=== PATIENT | female | born 1960 | race Caucasian/White ===

== ENCOUNTER 2018-12-19 01:45 | Emergency (ER) | payer OTHER ==
[2018-12-19] MEDS ORDERED: ONDANSETRON 4 MG/2 ML VIAL ONE (02:33)
[2018-12-19] MEDS ORDERED: MORPHINE 4 MG/ML SYR ONE (02:33)
--- OUTSIDE RECORDS SUMMARY | 2018-12-19 04:36 | XMS REPORT | Clinical Summary ---
:1960 Author Organization [facility] Address [address] [place] [address] Care Team Providers Name Role Phone Kathy Robles MD Primary Care Provider Allergies No Known Allergies Medications Medication Sig Dispensed Refills Start Date End Date Status amLODIPine (NORVASC) 10 Take 10 mg by 0 Active mg tablet mouth daily. venlafaxine (EFFEXOR) Take 37.5 mg by 0 Active 37.5 MG tablet mouth daily. levothyroxine Take 50 mcg by 0 Active (SYNTHROID, LEVOXYL) 50 mouth every mcg tablet morning. lisinopril Take 10 mg by 0 Active (PRINIVIL,ZESTRIL) 10 mg mouth 2 (two) tablet times a day. metoprolol tartrate Take 100 mg by 0 Active (LOPRESSOR) 100 mg mouth 2 (two) tablet times a day. pantoprazole (PROTONIX) Take 40 mg by 0 Active 40 MG EC tablet mouth daily. Active Problems No known active problems Encounters Date Type Specialty Care Team Description 07/31/2018 Documentation Weight Management Jesika Ratliff Bariatric Follow Up Call after 12/18/2017 Family History Medical History Relation Name Comments Cancer Father Hypertension Father Heart failure Mother Hypertension Mother Heart failure Paternal Grandmother Diabetes Sister Hypertension Sister Relation Name Status Comments Father STOMACH Mother Paternal Grandmother Sister Social History Tobacco Use Types Packs/Day Years Used Date Never Smoker Smokeless Tobacco: Never Used Alcohol Use Drinks/Week oz/Week Comments Yes 2 Glasses of wine 12.0 10 Cans of beer Sex Assigned at Date Recorded Not on file Job Start Date Occupation Industry Not on file Not on file Not on file Travel History Travel Start Travel End No recent travel history available. Last Filed Vital Signs Not on file Plan of Treatment Health Maintenance Due Date Last Done Comments CERVICAL CANCER SCREENING 1981 COLONOSCOPY SCREENING 2010 SHINGLES VACCINES (#1) 2010 INFLUENZA VACCINE 11/22/2018 BREAST CANCER SCREENING 08/03/2019 08/02/2017, 06/23/2015, 06/23/2015, Additional history exists Results Not on fileafter 12/18/2017 Advance Directives For more information, please contact: [phone] Type Date Recorded Patient Lining Stitcher Explanation Advance Directives, Living Will and Medical Power of Coiled Coil Inspector
[2018-12-19 04:40] LABS: Absolute Lymphocytes (CBC) 2.4 K/uL (0.7-4.9); Basophils % 1.3 % (0-1.3); Hematocrit 39.2 % (36.0-45.0); Lymphocytes % 29.9 % (15.3-44.8); MPV 8.1 fL (7.6-11.3); RBC Red Blood Cell Count 4.57 M/uL (3.86-4.86)
[2018-12-19 04:42] LABS: ALT/SGPT 33 U/L (12-78); AST/SGOT 28 U/L (15-37); Albumin 3.5 g/dL (3.4-5.0); Alkaline Phosphatase 127 U/L (45-117); BUN Blood Urea Nitrogen 13 mg/dL (7-18); Bicarbonate 26 mmol/L (21-32); Bilirubin Direct < 0.1 mg/dL (0-0.2); Bilirubin Total 0.2 mg/dL (0.2-1.0); Glucose Level 101 mg/dL (74-106); Lipase 431 U/L (73-393); Potassium 3.9 mmol/L (3.5-5.1); Protein, Total 6.8 g/dL (6.4-8.2); Sodium Level 141 mmol/L (136-145)
[2018-12-19 04:46] LABS: Urine Blood NEGATIVE (NEG); Urine Glucose NEGATIVE (NEG); Urine Protein NEGATIVE (NEG); Urine Specific Gravity <1.005 (1.005-1.030)
--- NOTE | 2018-12-19 05:52 | ER ---
Nurse's Notes [facility] Name: Leila Avendaño Age: 57 yrs Sex: Female : 1960 Arrival Date: 12/19/2018 Time: 03:31 Bed 19 Private MD: Diagnosis: Pain localized to upper abdomen Presentation: 12/19 01:50 Presenting complaint: EMS states: Sudden onset of epigastric pain described as hot cc3 sensation NRS 10/10. Pain comes and goes. Patient had a few alcoholic drinks last night, complains of diarrhea six times. Transition of care: patient was not received from another setting of care. Onset of symptoms was December 19, 2018. Risk Assessment: Do you want to hurt yourself or someone else? Patient reports no desire to harm self or others. Initial Sepsis Screen: Does the patient meet any 2 criteria? No. Patient's initial sepsis screen is negative. Does the patient have a suspected source of infection? No. Patient's initial sepsis screen is negative. Care prior to arrival: None. 01:50 Acuity: TEJA 3 cc3 01:50 Method Of Arrival: EMS: [email or web address] cc3 Triage Assessment: 01:50 General: Appears in no apparent distress. uncomfortable, Behavior is calm, cooperative, cc3 appropriate for age. Pain: Complains of pain in epigastric Pain does not radiate. Pain currently is 10 out of 10 on a pain scale. Quality of pain is described as hot feeling Pain began 30 min ago. EENT: No signs and/or symptoms were reported regarding the EENT system. Neuro: Level of Consciousness is awake, alert, obeys commands, Oriented to person, place, time, situation, Appropriate for age. Cardiovascular: Capillary refill < 3 seconds Patient's skin is warm and dry. Respiratory: Airway is patent Respiratory effort is even, unlabored, Respiratory pattern is regular, symmetrical. GI: Abdomen is round non-distended, Bowel sounds present X 4 quads. : No signs and/or symptoms were reported regarding the genitourinary system. Derm: Skin is intact, is healthy with good turgor, Skin is pink, warm \T\ dry. normal. Musculoskeletal: Circulation, motion, and sensation intact. Range of motion: intact in all extremities. Historical: - Allergies: 01:50 No Known Allergies; cc3 - Home Meds: 01:50 Metoprolol Tartrate Oral [Active]; amlodipine oral [Active]; Lisinopril Oral [Active]; cc3 Effexor Oral [Active]; - PMHx: 01:50 Hypertension; Ulcers; cc3 - PSHx: 01:50 Appendectomy; Hysterectomy; Gastric Bypass; cc3 - Immunization history:: Adult Immunizations up to date. - Social history:: Smoking status: Patient/guardian denies using tobacco, never smoked, Patient uses alcohol. - Ebola Screening: : No symptoms or risks identified at this time. Screenin:50 Abuse screen: Denies threats or abuse. Denies injuries from another. Nutritional cc3 screening: No deficits noted. Tuberculosis screening: No symptoms or risk factors identified. Fall Risk Ambulatory Aid- None/Bed Rest/Nurse Assist (0 pts). Gait- Normal/Bed Rest/Wheelchair (0 pts) Mental Status- Oriented to own ability (0 pts). Assessment: 01:50 GI: Abd is soft and non tender X 4 quads. cc3 02:18 Reassessment: Patient appears in no apparent distress at this time. Patient and/or cc3 family updated on plan of care and expected duration. Pain level reassessed. Patient is alert, oriented x 3, equal unlabored respirations, skin warm/dry/pink. 03:20 Reassessment: Patient appears in no apparent distress at this time. Patient and/or cc3 family updated on plan of care and expected duration. Pain level reassessed. Patient is alert, oriented x 3, equal unlabored respirations, skin warm/dry/pink. 04:15 Reassessment: Patient appears in no apparent distress at this time. Patient and/or cc3 family updated on plan of care and expected duration. Pain level reassessed. Patient is alert, oriented x 3, equal unlabored respirations, skin warm/dry/pink. Patient came back from CT scan department, awaiting result. Patient denies pain at this time. Patient states feeling better. Patient states symptoms have improved. 05:40 Reassessment: Patient appears in no apparent distress at this time. Patient and/or cc3 family updated on plan of care and expected duration. Pain level reassessed. Patient is alert, oriented x 3, equal unlabored respirations, skin warm/dry/pink. Patient denies pain at this time. Patient states feeling better. Patient states symptoms have improved. 06:00 Reassessment: Patient appears in no apparent distress at this time. Patient and/or cc3 family updated on plan of care and expected duration. Pain level reassessed. Patient is alert, oriented x 3, equal unlabored respirations, skin warm/dry/pink. Patient discharged home, left ER vitally stable and ambulatory. Patient denies pain at this time. Patient states feeling better. Patient states symptoms have improved. Vital Signs: 01:50 BP 116 / 99; Pulse 88; Resp 16 S; Temp 97.5(O); Pulse Ox 100% on R/A; Weight 90.26 kg cc3 (R); Height 5 ft. 8 in. (172.72 cm) (R); Pain 10/10; 02:45 BP 114 / 88; Pulse 80; Resp 16 S; Pulse Ox 99% on R/A; cc3 03:15 BP 109 / 80; Pulse 73; Resp 17 S; Pulse Ox 97% on R/A; cc3 04:23 BP 118 / 83; Pulse 72; Resp 16 S; Pulse Ox 100% on R/A; cc3 05:40 BP 101 / 65; Pulse 67; Resp 17 S; Pulse Ox 96% on R/A; cc3 01:50 Body Mass Index 30.26 (90.26 kg, 172.72 cm) cc3 ED Course: 01:50 Patient has correct armband on for positive identification. Placed in gown. Bed in low cc3 position. Call light in reach. Side rails up X 1. library monitor on. Pulse ox on. NIBP on. 01:50 Arm band placed on right wrist. Patient notified of wait time. EKG completed in triage. cc3 Results shown to MD. 01:50 Maintain EMS IV. Dressing intact. Site clean \T\ dry. Gauge \T\ site: gauge 20 right hand. cc 3 02:40 Inserted saline lock: 20 gauge in left antecubital area, using aseptic technique. Blood cc3 collected. 03:31 Patient arrived in ED. fc 03:33 Jaime Couch MD is Attending Physician. gs 03:46 Macey Dubon is Primary Nurse. cc3 04:10 Triage completed. cc3 04:19 CT completed. Patient tolerated procedure well. Patient moved to CT via wheelchair. Patient moved back from [place]. 05:37 Abdomen In Process Unspecified. EDMS 06:00 No provider procedures requiring assistance completed. IV discontinued, intact, cc3 bleeding controlled, No redness/swelling at site. Pressure dressing applied. Administered Medications: 02:40 Drug: morphine 4 mg {Note: RASS 0.} Route: IVP; Site: left antecubital; cc3 03:30 Follow up: Response: No adverse reaction; Pain is decreased; RASS: Alert and Calm (0) cc3 02:45 Drug: Zofran 4 mg Route: IVP; Site: left antecubital; cc3 03:30 Follow up: Response: No adverse reaction; Nausea is decreased cc3 Outcome: 05:51 Discharge ordered by . 06:00 Discharged to home ambulatory. cc3 06:00 Condition: stable 06:00 Discharge instructions given to patient, Instructed on discharge instructions, follow up and referral plans. medication usage, Demonstrated understanding of instructions, follow-up care, medications, Prescriptions given X 2. 06:24 Patient left the ED. cc3 Signatures: Dispatcher [employer] EDTurner Vizcarra Felicia RN RN Jaime Dubose MD MD gs Cordel, Charlene cc3 Corrections: (The following items were deleted from the chart) 04:11 01:50 Method Of Arrival: EMS: [facility] cc3 cc3 04:15 01:50 Immunization history: Adult Immunizations unknown, cc3 cc3 04:15 01:50 Social history: Smoking status: Patient uses tobacco products, denies chronic cc3 smoking, but will smoke occasionally, cc3
--- NOTE | 2018-12-19 05:52 | EDPHYS ---
Physician Documentation [facility] Name: Leila Avendaño Age: 57 yrs Sex: Female : 1960 Arrival Date: 12/19/2018 Time: 03:31 Bed 19 Private MD: ED Physician Jaime Couch HPI: 12/19 05:40 This 57 yrs old Female presents to ER via EMS with complaints of Abdominal gs Pain. 05:40 The patient presents with abdominal pain. Onset: The symptoms/episode began/occurred gs acutely, just prior to arrival. The symptoms do not radiate. Associated signs and symptoms: Pertinent positives: nausea. The symptoms are described as crampy. Modifying factors: The symptoms are alleviated by nothing, the symptoms are aggravated by nothing. Severity of pain: At its worst the pain was moderate in the emergency department the pain is unchanged. The patient has experienced similar episodes in the past, a few times. Historical: - Allergies: 01:50 No Known Allergies; cc3 - Home Meds: 01:50 Metoprolol Tartrate Oral [Active]; amlodipine oral [Active]; Lisinopril Oral [Active]; cc3 Effexor Oral [Active]; - PMHx: 01:50 Hypertension; Ulcers; cc3 - PSHx: 01:50 Appendectomy; Hysterectomy; Gastric Bypass; cc3 - Immunization history:: Adult Immunizations up to date. - Social history:: Smoking status: Patient/guardian denies using tobacco, never smoked, Patient uses alcohol. - Ebola Screening: : No symptoms or risks identified at this time. ROS: 05:40 All other systems are negative. gs Exam: 05:40 Head/Face: Normocephalic, atraumatic. Eyes: Pupils equal round and reactive to light, gs extra-ocular motions intact. Lids and lashes normal. Conjunctiva and sclera are non-icteric and not injected. Cornea within normal limits. Periorbital areas with no swelling, redness, or edema. ENT: Nares patent. No nasal discharge, no septal abnormalities noted. Tympanic membranes are normal and external auditory canals are clear. Oropharynx with no redness, swelling, or masses, exudates, or evidence of obstruction, uvula midline. Mucous membranes moist. Neck: Trachea midline, no thyromegaly or masses palpated, and no cervical lymphadenopathy. Supple, full range of motion without nuchal rigidity, or vertebral point tenderness. No Meningismus. Chest/axilla: Normal chest wall appearance and motion. Nontender with no deformity. No lesions are appreciated. Cardiovascular: Regular rate and rhythm with a normal S1 and S2. No gallops, murmurs, or rubs. Normal PMI, no JVD. No pulse deficits. Respiratory: Lungs have equal breath sounds bilaterally, clear to auscultation and percussion. No rales, rhonchi or wheezes noted. No increased work of breathing, no retractions or nasal flaring. Back: No spinal tenderness. No costovertebral tenderness. Full range of motion. Skin: Warm, dry with normal turgor. Normal color with no rashes, no lesions, and no evidence of cellulitis. MS/ Extremity: Pulses equal, no cyanosis. Neurovascular intact. Full, normal range of motion. Neuro: Awake and alert, GCS 15, oriented to person, place, time, and situation. Cranial nerves II-XII grossly intact. Motor strength 5/5 in all extremities. Sensory grossly intact. Cerebellar exam normal. Normal gait. 05:40 Constitutional: The patient appears alert, awake, uncomfortable. 05:40 Abdomen/GI: Palpation: moderate abdominal tenderness, in the right upper quadrant and left upper quadrant. 05:51 ECG was reviewed by the Attending Physician. Vital Signs: 01:50 BP 116 / 99; Pulse 88; Resp 16 S; Temp 97.5(O); Pulse Ox 100% on R/A; Weight 90.26 kg cc3 (R); Height 5 ft. 8 in. (172.72 cm) (R); Pain 10/10; 02:45 BP 114 / 88; Pulse 80; Resp 16 S; Pulse Ox 99% on R/A; cc3 03:15 BP 109 / 80; Pulse 73; Resp 17 S; Pulse Ox 97% on R/A; cc3 04:23 BP 118 / 83; Pulse 72; Resp 16 S; Pulse Ox 100% on R/A; cc3 05:40 BP 101 / 65; Pulse 67; Resp 17 S; Pulse Ox 96% on R/A; cc3 01:50 Body Mass Index 30.26 (90.26 kg, 172.72 cm) cc3 MDM: 03:33 Patient medically screened. gs 05:40 Differential diagnosis: gastritis, gastroesophageal reflux disease, non-specific abd gs pain, pancreatitis. Data reviewed: vital signs, nurses notes. Counseling: I had a detailed discussion with the patient and/or guardian regarding: the historical points, exam findings, and any diagnostic results supporting the discharge/admit diagnosis, the need for outpatient follow up. Response to treatment: the patient's symptoms have markedly improved after treatment, the patient's condition has returned to base line. Response to treatment: and as a result, I will discharge patient. 12/19 03:47 Order name: Urine Dipstick--Ancillary (enter results) [facility] 12/19 03:51 Order name: Basic Metabolic Panel [facility] 12/19 03:51 Order name: CBC with Diff [facility] 12/19 03:51 Order name: Creatinine for Radiology [facility] 12/19 03:51 Order name: Hepatic Function [facility] 12/19 03:51 Order name: Lipase [facility] 12/19 03:59 Order name: CT Abd/Pelvis - Without Contrast [facility] 12/19 04:41 Order name: CBC with Automated Diff; Complete Time: 05:50 EDMS 12/19 04:42 Order name: Basic Metabolic Panel; Complete Time: 05:50 EDMS 12/19 04:42 Order name: Liver (Hepatic) Function; Complete Time: 05:50 EDMS 12/19 04:43 Order name: Lipase; Complete Time: 05:50 EDMS 12/19 04:47 Order name: Urine Dipstick-Ancillary; Complete Time: 05:50 EDMS 12/19 05:35 Order name: Abdomen [facility] 12/19 03:51 Order name: IV Saline Lock; Complete Time: 03:51 3 12/19 03:51 Order name: Labs collected and sent; Complete Time: 03:51 3 12/19 03:56 Order name: EKG; Complete Time: 04:49 3 12/19 03:56 Order name: EKG - Nurse/Tech; Complete Time: 03:56 cc3 EC:51 Rate is 78 beats/min. Rhythm is regular. ME interval is normal. QRS interval is normal. gs No ST changes noted. Clinical impression: Normal ECG. Interpreted by me. Administered Medications: 02:40 Drug: morphine 4 mg {Note: RASS 0.} Route: IVP; Site: left antecubital; cc3 03:30 Follow up: Response: No adverse reaction; Pain is decreased; RASS: Alert and Calm (0) cc3 02:45 Drug: Zofran 4 mg Route: IVP; Site: left antecubital; cc3 03:30 Follow up: Response: No adverse reaction; Nausea is decreased cc3 Disposition: 12/19/18 05:51 Discharged to Home. Impression: Pain localized to upper abdomen. - Condition is Stable. - Discharge Instructions: Abdominal Pain, Adult. - Prescriptions for Pepcid 20 mg Oral Tablet - take 1 tablet by ORAL route every 12 hours for 10 days; 20 tablet. Zofran 4 mg Oral Tablet - take 1 tablet by ORAL route every 12 hours As needed; 6 tablet. - Medication Reconciliation Form, Thank You Letter, Antibiotic Education, Prescription Opioid Use form. - Follow up: Private Physician; When: 2 - 3 days; Reason: Re-evaluation by your physician. Signatures: Dispatcher [employer] EDAR Jaime Couch MD MD gs Cordel, Charlene cc3 Corrections: (The following items were deleted from the chart) 04:15 01:50 Immunization history: Adult Immunizations unknown, cc3 cc3 04:15 01:50 Social history: Smoking status: Patient uses tobacco products, denies chronic cc3 smoking, but will smoke occasionally, cc3 06:24 05:51 12/19/2018 05:51 Discharged to Home. Impression: Pain localized to upper abdomen. cc3 Condition is Stable. Forms are Medication Reconciliation Form, Thank You Letter, Antibiotic Education, Prescription Opioid Use. Follow up: Private Physician; When: 2 - 3 days; Reason: Re-evaluation by your physician. ugo
--- NOTE | 2018-12-19 08:56 | EKG ---
Test Date: 2018-12-19 Test Time: 03:13:07 Transformer Shop Supervisor: JANY MEASUREMENT RESULTS: Intervals: Rate: 78 DE: 174 QRSD: 100 QT: 392 QTc: 446 [place]: P: 40 DE: 174 QRS: 34 T: 43 INTERPRETIVE STATEMENTS: Normal sinus rhythm Normal ECG No previous ECG available for comparison Electronically Signed On 12-19-18 08:56:09 CDT by Landry Maradiaga
--- NOTE | 2018-12-19 10:49 | RAD REPORT ---
EXAM DESCRIPTION: CT - Abdomen Pelvis W Contrast - 12/19/2018 5:56 am CLINICAL HISTORY: The patient is 53 years old and is Female; epigastric pain TECHNIQUE: Axial computed tomography images of the abdomen and pelvis with intravenous contrast. S agittal and coronal reformatted images were created and reviewed. This CT exam was performed using one or more of the following dose reduction techniques: automated exposure control, adjustment of t he mA and/or kV according to patient size, and/or use of iterative reconstruction technique. COMPARISON: No relevant prior studies available. FINDINGS: LUNG BASES: Unremarkable. No mass. No consolidation. MEDIASTINUM: A small hiatal hernia is present. ABDOMEN: LIVER: The liver is mildly fatty and prominent. GALLBLADDER AND BILE DUCTS: Physiologic distention of the gallbladder is noted. There is no duct al dilatation or calcified gallstones. PANCREAS: No ductal dilation. No mass. SPLEEN: Unremarkable. ADRENALS: Unremarkable. No mass. KIDNEYS AND URETERS: Exophytic 1.7 cm left renal cyst is present. No follow-up imaging is recomm ended. The kidneys enhance symmetrically. No obstructing renal or ureteral calculus is seen. STOMACH AND BOWEL: The stomach is decompressed. Postsurgical change consistent with a gastric by pass is noted. The small bowel is normal in caliber. Stool is present throughout colon. There is no m ucosal thickening or evidence of bowel obstruction. PELVIS: APPENDIX: No findings to suggest acute appendicitis. BLADDER: Unremarkable. No mass. REPRODUCTIVE: The patient is status post hysterectomy. ABDOMEN and PELVIS: INTRAPERITONEAL SPACE: Unremarkable. No free air. No significant fluid collection. BONES/JOINTS: No acute fracture. SOFT TISSUES: The soft tissues are normal. VASCULATURE: Unremarkable. No abdominal aortic aneurysm. LYMPH NODES: Unremarkable. No enlarged lymph nodes. IMPRESSION: No acute findings on this contrasted CT of the abdomen and pelvis to explain the patient 's symptoms. Electronically signed by: Naty Rodriguez MD 12/19/2018 4:49 AM CDT Due to temporary technical issues with the PACS/Fluency reporting system, reports are being signed by the in house radiologist as a courtesy to ensure prompt reporting. The interpreting radiologist is f ully responsible for the content of the report.
== END 2018-12-19 06:24 | disposition home or self-care (01) ==
LOC: ER 01:45
DX: R10.10 Upper abdominal pain, unspecified (principal); I10 Essential (primary) hypertension
CPT/HCPCS: 93005; 85025; 80048; 36415; 80076; 81003; 83690; 74177; Q9967; J2405; 96374; 96375; 99285

== ENCOUNTER 2021-09-28 11:22 | Emergency (ER) | payer OTHER, SELFPAY ==
--- OUTSIDE RECORDS SUMMARY | 2021-09-28 11:26 | XMS REPORT | Continuity of Care Document ---
:1960 Author Organization [facility] t Address [address] [place] [address] [address] [place] [address] Care Team Providers Name Role Phone OMER Attending Clinician Unavailable Problems This patient has no known problems. Allergies, Adverse Reactions, Alerts This patient has no known allergies or adverse reactions. Medications This patient has no known medications. Procedures This patient has no known procedures. Encounters Start End Encounter Admission Attending Care Care Encounter Source Date/Time Date/Time Type Type Clinicians Facility Department ID 2020-07-16 2020-07-16 Outpatient OMER Vince [facility] [id number] [place] 00:00:00 00:00:[address] [place] [address] Results This patient has no known results.
[2021-09-28 11:57] LABS: Absolute Lymphocytes (CBC) 1.7 K/uL (0.7-4.9); Hematocrit 42.8 % (36.0-45.0); Lymphocytes % 36.1 % (15.3-44.8); MPV 7.8 fL (7.6-11.3); RBC Red Blood Cell Count 4.75 M/uL (3.86-4.86)
[2021-09-28] MEDS ORDERED: MORPHINE 4 MG/ML SYR ONE (11:58)
[2021-09-28] MEDS ORDERED: NA CHLORIDE 0.9% 1,000 ML ONE (11:58)
[2021-09-28] MEDS ORDERED: ONDANSETRON 4 MG/2 ML VIAL ONE (11:58)
[2021-09-28 12:26] LABS: Albumin 3.4 g/dL (3.4-5.0); Bilirubin Total 1.1 mg/dL (0.2-1.0); Protein, Total 6.9 g/dL (6.4-8.2)
[2021-09-28 12:29] LABS: Potassium 2.9 mmol/L (3.5-5.1)
--- NOTE | 2021-09-28 12:57 | RAD REPORT ---
EXAM DESCRIPTION: US - Abdomen Exam Limited - 09/28/2021 12:31 pm CLINICAL HISTORY: ABD PAIN COMPARISON: Abdomen Pelvis W Contrast dated 12/19/2018 FINDINGS: The elongated gallbladder configuration matches the 2019 CT study. A few punctate areas of nonshadowing increased echogenicity seen within the lumen. These are probably areas of tumefactive s ludge. No shadowing gallstones confirmed. Areas of sludge are not likely symptomatic. There is no wal l thickening or pericholecystic fluid. No common duct stone or biliary tree dilatation identified. IMPRESSION: Tumefactive sludge is seen within the gallbladder lumen probably not clinically signific ant. No gallbladder wall thickening or pericholecystic fluid. No biliary tree abnormality.
--- NOTE | 2021-09-28 13:04 | RAD REPORT ---
EXAM DESCRIPTION: CT - Abdomen Pelvis W Contrast - 09/28/2021 12:51 pm CLINICAL HISTORY: Abdominal pain, acute, nonlocalized COMPARISON: Abdomen Pelvis W Contrast dated 12/19/2018; Abdomen Pelvis W Contrast dated 06/04/2017 TECHNIQUE: Biphasic, helical CT imaging of the abdomen and pelvis was performed following 100 ml non -ionic IV contrast. No oral contrast administered. All CT scans are performed using dose optimization technique as appropriate and may include automated exposure control or mA/KV adjustment according to patient size. FINDINGS: No suspicious findings in the lung bases. Liver shows a mild fatty infiltration pattern but no focal liver parenchymal lesions seen. No portal vein abnormality identified. No pancreatic or peripancreatic abnormality seen. Spleen is unremarkable . Gallbladder is distended but not dilated. The elongated shape is similar to 2019. No gallbladder wall thickening or edema seen. Separately reported ultrasound noted sludge but no gallstones. No biliary tree dilatation seen. Duct stones can be occult. Symmetric renal function is seen with no hydronephrosis or suspicious renal mass. No pyelonephritis o r acute parenchymal process. No bladder abnormalities. No adrenal abnormalities. Uterus is absent. Ov brenda are absent or atrophic. Surgical changes are noted at the GE junction. Small hiatal hernia is present. Findings are similar t o 2019. No acute gastric finding identified. Distal gastric bypass anastomotic site is unremarkable. There are no acute small bowel finding. Patient has a large fatty ileocecal valve. Appendix is not se en and may be surgically absent. No appendicitis findings. No acute colon process identifiable. Sigmo id colon is redundant. No free air, free fluid or inflammatory stranding. No hernia, mass or bulky lymphadenopathy. No suspicious bony findings. Degenerative changes are present. IMPRESSION: Gallbladder is distended but not dilated. No wall thickening or edema seen. Ultrasound s howed minimal sludge with no stones confirmed. No biliary tree dilatation. Duct stones can be occult on CT imaging. Mild diffuse fatty infiltration of the liver.
[2021-09-28 14:59] LABS: Urine Blood Negative (Negative); Urine Glucose Negative (Negative); Urine Protein Negative (Negative); Urine Specific Gravity <=1.005 (1.005-1.030); Urine pH 5.5 (5.0-7.0)
--- NOTE | 2021-09-28 16:06 | RAD REPORT ---
EXAM DESCRIPTION: MRI - Cholangiogram - 09/28/2021 3:51 pm CLINICAL HISTORY: abd pain Abdominal pain COMPARISON: Abdomen Exam Limited dated 09/28/2021; Abdomen Pelvis W Contrast dated 09/28/2021 FINDINGS: Three-dimensional MRCP was performed using maximum intensity projection reconstruction on the same work station. No intrahepatic biliary tree dilatation is seen. The common bile duct is normal caliber without evide nce of retained stone, stricture or mass. The pancreatic duct is not pathologically dilated. The gallbladder is distended but otherwise unremarkable. Limited T2 sequences through the abdomen demonstrates no bulky adenopathy, significant free fluid or abscess. 16 mm cyst anterior left kidney. IMPRESSION: Negative MR cholangiogram.
--- NOTE | 2021-09-28 16:20 | ER ---
Nurse's Notes [facility] Name: Leila Avendaño Age: 60 yrs Sex: Female : 1960 Arrival Date: 09/28/2021 Time: 11:28 Bed 8 Private MD: Diagnosis: Upper abdominal pain, unspecified;Gallbladder sludge Presentation: 09/28 11:32 Chief complaint: Patient states: she has been having right sided abdominal pain for ap3 approx 4 days now. patient states she believes it to be her gallbladder due to the pain increasing after eating or drinking anything. 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 Coronavirus screen: At this time, the client does not indicate any symptoms associated with coronavirus-19. Ebola Screen: No symptoms or risks identified at this time. Initial Sepsis Screen: Does the patient meet any 2 criteria? No. Patient's initial sepsis screen is negative. Does the patient have a suspected source of infection? No. Patient's initial sepsis screen is negative. Risk Assessment: Do you want to hurt yourself or someone else? Patient reports no desire to harm self or others. Onset of symptoms was September 24, 2021. 11:32 Method Of Arrival: Ambulatory ap3 11:32 Acuity: TEJA 3 ap3 Triage Assessment: 11:34 General: Appears in no apparent distress. Behavior is calm, cooperative. Pain: ap3 Complains of pain in right upper quadrant Pain radiates to back Aggravated by eating, drinking. Neuro: Level of Consciousness is awake, alert, obeys commands, Oriented to person, place, time, situation, Appropriate for age. Cardiovascular: Patient's skin is warm and dry. Respiratory: Airway is patent Respiratory effort is even, unlabored. GI: Reports upper abdominal pain, diarrhea. Historical: - Allergies: 11:33 No Known Allergies; ap3 - PMHx: 11:33 Anxiety; Hypertension; Hypothyroidism; Ulcers; ap3 - PSHx: 11:33 gastric bypass 2010; ap3 - Immunization history:: Client reports receiving the 2nd dose of the Covid vaccine. - Social history:: Smoking status: Patient denies any tobacco usage or history of. Patient uses alcohol, weekly. - Family history:: not pertinent. - Hospitalizations: : No recent hospitalization is reported. Screenin:35 Abuse screen: Denies threats or abuse. Abuse screen: Denies threats or abuse. ap3 Nutritional screening: No deficits noted. Tuberculosis screening: No symptoms or risk factors identified. Fall Risk None identified. Assessment: 11:58 General: Appears in no apparent distress. uncomfortable, Behavior is calm, cooperative, jd3 appropriate for age. Pain: Complains of pain in right upper quadrant Quality of pain is described as sharp, tender. Neuro: Carrillo Agitation-Sedation Scale (RASS): 0 - Alert and Calm Level of Consciousness is awake, alert, obeys commands, Oriented to person, place, time, situation. Cardiovascular: Denies chest pain, Capillary refill < 3 seconds Patient's skin is warm and dry. Respiratory: Airway is patent Respiratory effort is even, unlabored, Respiratory pattern is regular, symmetrical, Denies cough, shortness of breath. GI: Abdomen is round non-distended, Abd is soft X 4 quads Abdomen is tender to palpation in right upper quadrant Reports upper abdominal pain, diarrhea. : No signs and/or symptoms were reported regarding the genitourinary system. EENT: No signs and/or symptoms were reported regarding the EENT system. Derm: Skin is intact, Skin is dry, Skin is normal, Skin temperature is warm. Musculoskeletal: Circulation, motion, and sensation intact. Range of motion: intact in all extremities. 12:59 Reassessment: Patient appears in no apparent distress at this time. Patient and/or jd3 family updated on plan of care and expected duration. Pain level reassessed. Patient is alert, oriented x 3, equal unlabored respirations, skin warm/dry/pink. Patient states feeling better. 13:53 Reassessment: Patient appears in no apparent distress at this time. Patient and/or jd3 family updated on plan of care and expected duration. Pain level reassessed. Patient is alert, oriented x 3, equal unlabored respirations, skin warm/dry/pink. 14:57 Reassessment: Patient appears in no apparent distress at this time. Patient and/or jd3 family updated on plan of care and expected duration. Pain level reassessed. Patient is alert, oriented x 3, equal unlabored respirations, skin warm/dry/pink. 15:49 Reassessment: Patient appears in no apparent distress at this time. Patient and/or jd3 family updated on plan of care and expected duration. Pain level reassessed. Patient is alert, oriented x 3, equal unlabored respirations, skin warm/dry/pink. awaiting results. 16:50 Reassessment: Patient appears in no apparent distress at this time. Patient and/or jd3 family updated on plan of care and expected duration. Pain level reassessed. Patient is alert, oriented x 3, equal unlabored respirations, skin warm/dry/pink. Patient states feeling better. Vital Signs: 11:32 BP 129 / 99; Pulse 102; Resp 17; Temp 98.2; Pulse Ox 100% ; Weight 81.65 kg; Height 5 ap3 ft. 8 in. (172.72 cm); Pain 5/10; 12:59 BP 124 / 94; Pulse 69; Resp 18 S; Pulse Ox 100% on R/A; jd3 13:54 BP 112 / 98; Pulse 76; Resp 18 S; Pulse Ox 100% on R/A; jd3 15:50 Pulse 73; Resp 18 S; Pulse Ox 100% on R/A; jd3 11:32 Body Mass Index 27.37 (81.65 kg, 172.72 cm) ap3 ED Course: 11:28 Patient arrived in ED. am2 11:33 Triage completed. ap3 11:35 Arm band placed on right wrist. ap3 11:37 Kris Hare MD is Attending Physician. rn 11:37 Rick Healy RN is Primary Nurse. jd3 11:51 Inserted saline lock: 20 gauge in left antecubital area, using aseptic technique. Blood bp collected. 12:00 Patient has correct armband on for positive identification. Bed in low position. Call jd3 light in reach. Side rails up X 1. Adult w/ patient. 12:32 Abdomen Limited US In Process Unspecified. EDMS 12:53 CT Abd/Pelvis - IV Contrast Only In Process Unspecified. EDMS 15:53 Cholangiogram In Process Unspecified. EDMS 16:20 Ravinder Razo MD is Referral Physician. rn 16:50 No provider procedures requiring assistance completed. IV discontinued, intact, jd3 bleeding controlled, No redness/swelling at site. Pressure dressing applied. Administered Medications: 11:57 Drug: morphine 4 mg Route: IVP; Infused Over: 4 mins; Site: left antecubital; jd3 12:50 Follow up: Response: No adverse reaction; RASS: Alert and Calm (0) jd3 11:58 Drug: NS 0.9% 1000 ml Route: IV; Rate: 1 bolus; Site: left antecubital; jd3 11:58 Not Given (med on recall): Pepcid (famotidine) 20 mg IVP once; dilute with 10 mL 0.9% jd3 NaCl; give over 2 minutes 11:58 Drug: Zofran (Ondansetron) 4 mg Route: IVP; Site: left antecubital; jd3 13:46 Follow up: Response: No adverse reaction jd3 Medication: 12:00 VIS not applicable for this client. jd3 Outcome: 16:20 Discharge ordered by . rn 16:50 Discharged to home ambulatory, with family. jd3 16:50 Condition: stable 16:50 Discharge instructions given to patient, family, Instructed on discharge instructions, follow up and referral plans. Demonstrated understanding of instructions, follow-up care. 16:50 Patient left the ED. jd3 Signatures: Dispatcher [employer] EDMS Kris Hare MD MD rn Moreno, Amanda am2 Davies, Jonathon, RN RN jWillis Xiong RN RN bp Estrellita Herr RN RN ap3 Corrections: (The following items were deleted from the chart) 13:56 13:54 Pulse 76bpm; Resp 18bpm; Spontaneous; Pulse Ox 100% RA; jd3 jd3
--- NOTE | 2021-09-28 16:21 | EDPHYS ---
Physician Documentation [facility] Name: Leila Avendaño Age: 60 yrs Sex: Female : 1960 Arrival Date: 09/28/2021 Time: 11:28 Bed 8 Private MD: ED Physician Kris Hare HPI: 09/28 13:54 This 60 yrs old Female presents to ER via Ambulatory with complaints of Abdominal Pain rn - right side, Nausea/Vomiting. 13:54 The patient presents to the emergency department with nausea, vomiting, diarrhea, rn abdominal pain. Onset: The symptoms/episode began/occurred 4 day(s) ago. Possible causes: unknown. The symptoms are aggravated by nothing. The symptoms are alleviated by nothing. Severity of symptoms: At their worst the symptoms were moderate in the emergency department the symptoms have improved. The patient has experienced a previous episode. The patient has not recently seen a physician. Reports RUQ abd pain, for 4 days, worse with food, assoc with nausea and diarrhea, no fever. Told had gallbladder sludge in past. No sick contacts. No blood in stool. . Historical: - Allergies: 11:33 No Known Allergies; ap3 - PMHx: 11:33 Anxiety; Hypertension; Hypothyroidism; Ulcers; ap3 - PSHx: 11:33 gastric bypass 2010; ap3 - Immunization history:: Client reports receiving the 2nd dose of the Covid vaccine. - Social history:: Smoking status: Patient denies any tobacco usage or history of. Patient uses alcohol, weekly. - Family history:: not pertinent. - Hospitalizations: : No recent hospitalization is reported. ROS: 13:54 Constitutional: Negative for fever, chills, and weight loss, Eyes: Negative for injury, rn pain, redness, and discharge, Neck: Negative for injury, pain, and swelling, Cardiovascular: Negative for chest pain, palpitations, and edema, Respiratory: Negative for shortness of breath, cough, wheezing, and pleuritic chest pain, Abdomen/GI: + RUQ abd pain with nausea and diarrhea Back: Negative for injury and pain, : Negative for injury, bleeding, discharge, and swelling, MS/Extremity: Negative for injury and deformity, Skin: Negative for injury, rash, and discoloration, Neuro: Negative for headache, weakness, numbness, tingling, and seizure. Exam: 13:54 Constitutional: This is a well developed, well nourished patient who is awake, alert, rn appears in pain Head/Face: Normocephalic, atraumatic. Cardiovascular: Regular rate and rhythm. No pulse deficits. Respiratory: No increased work of breathing, no retractions or nasal flaring. Abdomen/GI: soft, + RUQ and epigastric tenderness, no rebound, neg Yates's Skin: Warm, dry with normal turgor. Normal color with no rashes, no lesions, and no evidence of cellulitis. MS/ Extremity: Pulses equal, no cyanosis. Neurovascular intact. Full, normal range of motion. Equal circumference. Neuro: Awake and alert, GCS 15 Vital Signs: 11:32 BP 129 / 99; Pulse 102; Resp 17; Temp 98.2; Pulse Ox 100% ; Weight 81.65 kg; Height 5 ap3 ft. 8 in. (172.72 cm); Pain 5/10; 12:59 BP 124 / 94; Pulse 69; Resp 18 S; Pulse Ox 100% on R/A; jd3 13:54 BP 112 / 98; Pulse 76; Resp 18 S; Pulse Ox 100% on R/A; jd3 15:50 Pulse 73; Resp 18 S; Pulse Ox 100% on R/A; jd3 11:32 Body Mass Index 27.37 (81.65 kg, 172.72 cm) ap3 MDM: 11:37 Patient medically screened. rn 16:18 Differential diagnosis: Nonspecific abd pain, cholecystitis, pancreatitis, viral rn gastroenteritis, gastroenteritis, choledocholithiasis. Data reviewed: vital signs, nurses notes, lab test result(s), radiologic studies, CT scan, MRI, and as a result, I will discharge patient. Counseling: I had a detailed discussion with the patient and/or guardian regarding: the historical points, exam findings, and any diagnostic results supporting the discharge/admit diagnosis, lab results, radiology results, the need for outpatient follow up, to return to the emergency department if symptoms worsen or persist or if there are any questions or concerns that arise at home. Response to treatment: the patient's symptoms have resolved after treatment, the patient's condition has returned to base line, the patient is now symptom free, and as a result, I will discharge patient. Special discussion: I discussed with the patient/guardian in detail that at this point there is no indication for admission to the hospital. It is understood, however, that if the symptoms persist or worsen the patient needs to return immediately for re-evaluation. Based on the history and exam findings, there is no indication for further emergent testing or inpatient evaluation. I discussed with the patient/guardian the need to see the turbine engineer for further evaluation of the symptoms. I discussed with the patient/guardian the need to see the general surgeon for further evaluation of the symptoms. I discussed with the patient/guardian the need to see the primary care provider for further evaluation of the symptoms. ED course: Pt with neg MRCP, pain free, stable vitals, no signs of cholecystitis. Pt reports abnormal LFTs have been tracked and has known fatty liver disease and elevated LFTs.. 09/28 11:43 Order name: CBC with Diff; Complete Time: 13:06 rn 09/28 11:43 Order name: CMP; Complete Time: 13: rn 09/28 11:43 Order name: Lipase; Complete Time: 13: rn 09/28 11:43 Order name: Abdomen Limited US; Complete Time: 13: rn 09/28 11:43 Order name: CT Abd/Pelvis - IV Contrast Only; Complete Time: 13: rn 09/28 14:59 Order name: Urine Dipstick-Ancillary; Complete Time: 16:08 EDMS 09/28 11:43 Order name: IV Saline Lock; Complete Time: 11:50 rn 09/28 11:43 Order name: Labs collected and sent; Complete Time: 11:50 rn 09/28 13:44 Order name: Cholangiogram; Complete Time: 16:08 EDMS Administered Medications: 11:57 Drug: morphine 4 mg Route: IVP; Infused Over: 4 mins; Site: left antecubital; jd3 12:50 Follow up: Response: No adverse reaction; RASS: Alert and Calm (0) jd3 11:58 Drug: NS 0.9% 1000 ml Route: IV; Rate: 1 bolus; Site: left antecubital; jd3 11:58 Not Given (med on recall): Pepcid (famotidine) 20 mg IVP once; dilute with 10 mL 0.9% jd3 NaCl; give over 2 minutes 11:58 Drug: Zofran (Ondansetron) 4 mg Route: IVP; Site: left antecubital; jd3 13:46 Follow up: Response: No adverse reaction jd3 Disposition Summary: 09/28/21 16:20 Discharge Ordered Location: Home rn Problem: new rn Symptoms: have improved rn Condition: Stable rn Diagnosis - Upper abdominal pain, unspecified rn - Gallbladder sludge rn Followup: rn - With: Ravinder Razo MD - When: As needed - Reason: Recheck today's complaints, Re-evaluation by your physician Discharge Instructions: - Discharge Summary Sheet rn - Abdominal Pain, Adult rn - Gallbladder Eating Plan rn Forms: - Medication Reconciliation Form rn - Thank You Letter rn - Antibiotic fern picker - Prescription Opioid Use rn Signatures: Dispatcher [employer] EDKris Newton MD MD rn Davies, Jonathon RN RN jd3 Estrellita Herr RN RN ap3
[2021-09-28 17:28] VITALS: TEMP 98.2; O2SAT 100
[2021-09-28 17:31] VITALS: BP 112/98
== END 2021-09-28 16:50 | disposition home or self-care (01) ==
LOC: ER 11:22
DX: K82.8 Other specified diseases of gallbladder (principal); R11.2 Nausea with vomiting, unspecified; I10 Essential (primary) hypertension; Z98.84 Bariatric surgery status
CPT/HCPCS: 85025; 36415; 81003; 83690; 80053; 74177; 74181; 76705; Q9967; J7030; J2405

== ENCOUNTER 2021-10-18 07:07 | Day surgery (SDC) | payer OTHER ==
[2021-10-14 10:13] LABS: Absolute Lymphocytes (CBC) 1.5 K/uL (0.7-4.9); Hematocrit 42.5 % (36.0-45.0); Lymphocytes % 28.5 % (15.3-44.8); MPV 7.4 fL (7.6-11.3); RBC Red Blood Cell Count 4.79 M/uL (3.86-4.86)
[2021-10-14 10:24] LABS: SARS-CoV-2 Antigen Rapid Res Negative (Negative)
[2021-10-14 10:35] LABS: ALT/SGPT 96 U/L (12-78); AST/SGOT 190 U/L (15-37); Albumin 3.4 g/dL (3.4-5.0); Alkaline Phosphatase 175 U/L (45-117); Amylase 27 U/L (25-115); BUN Blood Urea Nitrogen 5 mg/dL (7-18); Bicarbonate 23 mmol/L (21-32); Bilirubin Direct 0.3 mg/dL (0-0.2); Bilirubin Total 0.9 mg/dL (0.2-1.0); Glomerular Filtration Rate 93 ml/min (=/>90); Glucose Level 125 mg/dL (74-106); Lipase 136 U/L (73-393); Protein, Total 6.9 g/dL (6.4-8.2); Sodium Level 135 mmol/L (136-145)
--- NOTE | 2021-10-14 13:59 | RAD REPORT ---
EXAM DESCRIPTION: RAD - Chest Pa And Lat (2 Views) - 10/14/2021 1:32 pm CLINICAL HISTORY: Pre op pending cholecystectomy COMPARISON: No comparisons FINDINGS: Lines: None. Lungs: No evidence of edema or pneumonia. Pleural: No significant pleural effusions or pneumothorax. Cardiac: The heart size is within normal limits. Bones: No acute fractures. Other: IMPRESSION: No acute cardiopulmonary disease.
--- NOTE | 2021-10-16 17:34 | EKG ---
Test Date: 2021-10-14 Test Time: 09:46:43 Manufacturing Controller: TAMMY MEASUREMENT RESULTS: Intervals: Rate: 76 AK: 140 QRSD: 94 QT: 394 QTc: 443 [place]: P: 4 AK: 140 QRS: 12 T: 21 INTERPRETIVE STATEMENTS: Normal sinus rhythm Normal ECG Compared to ECG 12/19/2018 03:13:07 No significant changes Electronically Signed On 10-16-21 17:30:23 CDT by Manny Sullivan
[2021-10-18] MEDS ORDERED: Ringers Lactate 1,000 ML IV ONE (07:16)
[2021-10-18] MEDS ORDERED: CELECOXIB 100 MG CAPSULE ONE (08:22)
[2021-10-18] MEDS ORDERED: ACETAMINOPHEN 500 MG TAB ONE (08:22)
[2021-10-18] MEDS: CEFOXITIN SODIUM 1 GM/VIAL ONE ×2 (08:25→08:27)
[2021-10-18] MEDS ORDERED: MIDAZOLAM HCL 2 MG/2 ML INJ ONE (08:30)
[2021-10-18] MEDS ORDERED: FENTANYL CITR 100 MCG/2 ML ONE (08:30)
[2021-10-18] MEDS ORDERED: LIDOCAINE 1% MPF 5 ML VIAL ONE (08:30)
[2021-10-18] MEDS ORDERED: ROCURONIUM 50 MG/5 ML VIAL IV ONE (08:30)
[2021-10-18] MEDS ORDERED: propofoL 200 MG/20 ML VIAL IV ONE (08:30)
[2021-10-18] MEDS ORDERED: NS 0.9% VIAL 10 ML ONE (08:35)
[2021-10-18] MEDS ORDERED: GLYCOPYRROLATE 0.2 MG/ML SYR ONE ×3 (08:50→09:01)
[2021-10-18] MEDS ORDERED: dexAMETHasone 10 MG/ML VIAL ONE (08:55)
[2021-10-18] MEDS ORDERED: KETOROLAC 30 MG/ML INJ ONE (08:55)
[2021-10-18] MEDS ORDERED: ONDANSETRON 4 MG/2 ML VIAL ONE (09:01)
[2021-10-18] MEDS ORDERED: NEOSTIGMINE 1 MG/ML -10 ML VIAL ONE (09:03)
[2021-10-18] MEDS ORDERED: SUGAMMADEX SODIUM 200 MG/2 ML VIAL IV ONE (09:05)
[2021-10-18] MEDS ORDERED: Mastisol Adhesive Liq ONE (09:10)
--- NOTE | 2021-10-18 09:11 | P.BOP ---
Preoperative diagnosis: RUQ abd pain, symptomatic cholelithiasis Postoperative diagnosis: same Primary procedure: Laparoscopic cholecystectomy Medical Transcriber: Maria Esther Rangel (Chicho) Estimated blood loss: <10cc Specimen: gb Findings: as above Anesthesia: General Transferred to: Recovery Room Condition: Good
[2021-10-18] MEDS ORDERED: HYDROMORPHONE HCL 1 MG/ML INJ ONE (09:38)
--- NOTE | 2021-10-18 10:04 | DS ---
Diagnoses: Symptomatic cholelithiasis, right upper quadrant abdominal pain. Procedure: Laparoscopic cholecystectomy. Disposition: Home. Activity: As tolerated. No heavy lifting. Plan: Follow up in my office in 1 week. Call for appointment at [phone]. Keep area dry for 48 canelo rs, then may shower. Keep Steri-Strip intact. Medications: See orders. LISSY/IGNACIO Voice ID: [id number] Report ID: [id number]
--- NOTE | 2021-10-18 10:04 | OP ---
Date of Procedure: 10/18/2021 Surgeon: Artemio Ulloa MD Preoperative Diagnoses: Right upper quadrant abdominal pain, symptomatic cholelithiasis, history of Zo-en-Y gastric bypass. Postoperative Diagnoses: Right upper quadrant abdominal pain, symptomatic cholelithiasis, history of Zo-en-Y gastric bypass. Procedure: Laparoscopic cholecystectomy. Anesthesia: General plus local. Complications: None. Estimated Blood Loss: Less than 10 mL. Indications: This is the case of a 60-year-old patient, who comes to us with intractable right upper quadrant abdominal pain. She has extensive workup done, found to have sludge in the gallbladder, se nt to our office for possible laparoscopic possible open cholecystectomy and that was explained to he r with benefits, alternatives, and alternatives and risks including, but not limited to infection, bl eeding, damage to adjacent structures, anesthesia complication, bile leak, pancreatitis, CA, and even . She also understands this may not relieve any symptoms. She might need more than one surgic al intervention. She understood, signed a consent. Procedure In Detail: The patient was brought to the operating room, placed in supine position. Anes thesia was without complication. Abdominal area was prepped and draped in the usual sterile fashion. Marcaine 0.5% was injected for local anesthetic followed by sharp incision of the skin in the supra umbilical area. The incision was carried down to fascia, which was opened under direct vision. Tova toneum was encountered, opened under direct vision Vicryl #1 placed inside the fascia. Palmira trocar was carefully introduced. Pneumoperitoneum was obtained. I placed 3 more trocars, 5 mm each one of them in the epigastric area, 2 right upper quadrant using same technique, which consisted of local a nesthetic, sharp incision of the skin and introduction of the trocars under direct vision. This allo wed me to put a grasper in the fundus of the gallbladder, another grasper in the infundibulum retract ing the gallbladder in the inferolateral fashion, exposing the triangle of Calot and obtaining critic al view. Cystic duct and cystic artery were clearly isolated, freed circumferentially and a connecti on between those and the gallbladder were clearly identified. I proceeded to ligate those by using a t least 3 clips proximal, 1 clip distal, ligation in middle. Same was done with the cystic artery. No bile leak. No bleeding. The gallbladder was removed from the liver using Bovie cauterizer and re moved from abdominal cavity using EndoCatch through umbilical incision. The area was inspected once again. No bile leak. No bleeding. At that moment, I proceeded to remove the trocars under direct v ision. Deflated the pneumoperitoneum. Closed the fascia with #1 Vicryl. Irrigated the subcutaneous tissue, closed that with 3-0 chromic and the skin in a subcuticular fashion with 3-0 chromic and Michel ri-Strips on top. Sponge count and instrument counts correct. The patient tolerated the procedure w ell. The patient was sent to recovery in stable condition. LISSY/IGNACIO Voice ID: [id number] Report ID: [id number]
[2021-10-18] MEDS ORDERED: CODEINE 30MG/APAP 300MG TAB ONE (10:39)
[2021-10-18 11:33] VITALS: BP 111/82; TEMP 97.3; O2SAT 97
== END 2021-10-18 10:50 | disposition home or self-care (01) ==
LOC: OR 07:07
PROVIDERS: ATTEND Surgery
PROC: 0FT44ZZ Resection of Gallbladder, Percutaneous Endoscopic Approach (ICD-10-PCS; principal; 2021-10-18 08:30)
DX: K80.10 Calculus of gallbladder with chronic cholecystitis without obstruction (principal); R10.11 Right upper quadrant pain; Z98.84 Bariatric surgery status
CPT/HCPCS: 93005; 85025; 80048; 36415; 82150; 80076; 88304; 83690; 71046; 87811; 47562; J2704; J2710; J2250; J3010; J1100; J1170; J7120; J0694; J2405

== ENCOUNTER 2023-08-01 16:26 | Observation (INO) | payer OTHER ==
[2023-08-01] MEDS ORDERED: MECLIZINE HCL 12.5 MG TAB ONE (17:18)
[2023-08-01] MEDS ORDERED: NA CHLORIDE 0.9% 1,000 ML ONE (17:19)
--- NOTE | 2023-08-01 17:29 | RAD REPORT ---
EXAM DESCRIPTION: CT - Head Brain Wo Cont - 08/01/2023 5:24 pm CLINICAL HISTORY: DIZZINESS Headache, drowsiness, dizziness COMPARISON: <Comparisons> TECHNIQUE: All CT scans are performed using dose optimization technique as appropriate and may inclu de automated exposure control or mA/KV adjustment according to patient size. FINDINGS: No intracranial hemorrhage, hydrocephalus or extra-axial fluid collection.Mild brain atrop hy.No areas of brain edema or evidence of midline shift. The paranasal sinuses and mastoids are clear. The calvarium is intact. IMPRESSION: No acute intracranial abnormality.
[2023-08-01 17:36] LABS: Absolute Basophils 0.1 K/uL (0-0.5); Absolute Eosinophils 0.1 K/uL (0-0.5); Absolute Lymphocytes (CBC) 1.3 K/uL (0.7-4.9); Absolute Monocytes 0.4 K/uL (0.1-1.3); Absolute Neutrophil 3.3 K/uL (1.8-8.0); Basophils % 1.3 % (0-1.3); Eosinophils % 2.1 % (0-4.4); Hematocrit 35.7 % (36.0-45.0); Hemoglobin 11.6 g/dL (12.0-15.0); MCH 29.2 pg (27.0-35.0); MCHC 32.6 g/dL (32.0-36.0); MCV 89.6 fL (80-100); Monocytes % 8.2 % (3.3-12.3); Neutrophils % 63.4 % (41.7-73.7); Nucleated Red Blood Cells % 0.1 % (0-0); Platelets 215 thou/uL (152-406); RBC Red Blood Cell Count 3.99 M/uL (3.86-4.86); Red Cell Distribution Width 15.2 % (12.1-15.2)
[2023-08-01 17:46] LABS: Anion Gap 9.2 mEq/L (5.0-15.0); BUN Blood Urea Nitrogen 11 mg/dL (7-18); Bicarbonate 24 mEq/L (21-32); Glomerular Filtration Rate 105 ml/min (=/>90); Glucose Level 97 mg/dL (74-106); Potassium 3.2 mEq/L (3.5-5.1); Sodium Level 138 mEq/L (136-145)
[2023-08-01 17:48] LABS: Troponin High Sensitivity < 3.0 pg/mL (<58.9)
--- NOTE | 2023-08-01 17:55 | RAD REPORT ---
EXAM DESCRIPTION: RAD - Chest Single View - 08/01/2023 5:43 pm CLINICAL HISTORY: PALPITATIONS Chest pain. COMPARISON: <Comparisons> FINDINGS: Portable technique limits examination quality. The lungs are grossly clear. The heart is upper limit of normal in size. No displaced fractures. IMPRESSION: No acute intrathoracic process suspected.
[2023-08-01] MEDS ORDERED: POTASSIUM CL SA 10 MEQ TAB PO ONE (18:38)
--- NOTE | 2023-08-01 19:13 | ER ---
Nurse's Notes [facility] Name: Leila Avendaño Age: 62 yrs Sex: Female : 1960 Arrival Date: 08/01/2023 Time: 16:26 Bed 7 Private MD: Diagnosis: Dizziness and giddiness;Palpitations Presentation: 07/31 16:45 Chief complaint: Patient states: Sudden onset dizziness, KENT, nausea at 1530 while at 1 work. EMS states: Initial BP 170/100, now BP 130/85. 20 L hand Zofran 4 MG IV given en route. Coronavirus screen: Client denies travel out of the [place] in the last 14 days. At this time, the client does not indicate any symptoms associated with coronavirus-19. Ebola Screen: Patient denies travel to an Ebola-affected area in the 21 days before illness onset. Initial Sepsis Screen: Does the patient meet any 2 criteria? No. Patient's initial sepsis screen is negative. Does the patient have a suspected source of infection? No. Patient's initial sepsis screen is negative. Risk Assessment: Do you want to hurt yourself or someone else? Patient reports no desire to harm self or others. Onset of symptoms was August 01, 2023. 16:45 Method Of Arrival: EMS ll1 16:45 Acuity: TEJA 3 ll1 Triage Assessment: 16:50 General: Appears uncomfortable, Behavior is calm, cooperative, appropriate for age. ll1 Pain: Complains of pain in HEAD Pain currently is 5 out of 10 on a pain scale. Quality of pain is described as aching. Neuro: Reports dizziness, headache. GI: Reports nausea. Historical: - Allergies: 16:45 No Known Allergies; ll1 - PMHx: 16:45 Anxiety; Hypertension; Hypothyroidism; Ulcers; ll1 - PSHx: 16:45 gastric bypass 2010; ll1 - Immunization history:: Adult Immunizations up to date. - Infectious Disease History:: Denies. - Social history:: Smoking status: Patient denies any tobacco usage or history of. - History obtained from: sister, EMS. Screenin:[address] [facility] ED Fall Risk Assessment (Adult) History of falling in the last 3 months, kc6 including since admission No falls in past 3 months (0 pts) Confusion or Disorientation No (0 pts) Intoxicated or Sedated No (0 pts) Impaired Gait No (0 pts) Mobility Assist Device Used No (0 pt) Altered Elimination No (0 pt) Score/Fall Risk Level 0 - 2 = Low Risk. Abuse screen: Denies threats or abuse. Denies injuries from another. Nutritional screening: No deficits noted. Tuberculosis screening: No symptoms or risk factors identified. Assessment: 17:30 General: Appears in no apparent distress. comfortable, Behavior is calm, cooperative, kc6 appropriate for age. 17:37 Neuro: Level of Consciousness is awake, alert, obeys commands, Oriented to person, kc6 place, time, situation, Appropriate for age Reports dizziness, headache. Cardiovascular: Reports palpitations, Heart tones S1 S2 present Capillary refill < 3 seconds Rhythm is sinus rhythm. Respiratory: Airway is patent Trachea midline Respiratory effort is even, unlabored, Respiratory pattern is regular, symmetrical. GI: No signs and/or symptoms were reported involving the gastrointestinal system. : No signs and/or symptoms were reported regarding the genitourinary system. EENT: No signs and/or symptoms were reported regarding the EENT system. Derm: No signs and/or symptoms reported regarding the dermatologic system. Skin is intact, is healthy with good turgor, Skin is pink, warm \\T\\ dry. Musculoskeletal: No signs and/or symptoms reported regarding the musculoskeletal system. Circulation, motion, and sensation intact. Capillary refill < 3 seconds, Range of motion: intact in all extremities. 18:28 Reassessment: Patient appears in no apparent distress at this time. No changes from [facility] previously documented assessment. Patient and/or family updated on plan of care and expected duration. Pain level reassessed. Patient is alert, oriented x 3, equal unlabored respirations, skin warm/dry/pink. 18:50 Reassessment: pt reports feeling dizzy and like she's "tripping" when ambulated to the [facility] bathroom. Dr. Glover notifed. 19:00 General: Appears in no apparent distress. comfortable, Behavior is calm, cooperative. jw7 19:00 Pain: Denies pain. Neuro: Level of Consciousness is awake, alert, obeys commands, jw7 Oriented to person, place, time, situation, Reports dizziness. Cardiovascular: Heart tones S1 S2 present Capillary refill < 3 seconds Clubbing of nail beds is absent JVD is absent Patient's skin is warm and dry. Rhythm is sinus rhythm. Respiratory: Airway is patent Trachea midline Respiratory effort is even, unlabored, Respiratory pattern is regular, symmetrical, Breath sounds are clear bilaterally. GI: Abdomen is flat, non-distended, Bowel sounds present X 4 quads. Abd is soft and non tender X 4 quads. : No deficits noted. No signs and/or symptoms were reported regarding the genitourinary system. EENT: No deficits noted. No signs and/or symptoms were reported regarding the EENT system. Derm: Skin is intact, is healthy with good turgor, Skin is dry, Skin is normal, Skin temperature is warm. Musculoskeletal: Circulation, motion, and sensation intact. Range of motion: intact in all extremities. 20:00 Reassessment: Patient appears in no apparent distress at this time. No changes from [facility] previously documented assessment. Patient and/or family updated on plan of care and expected duration. Pain level reassessed. Patient is alert, oriented x 3, equal unlabored respirations, skin warm/dry/pink. 21:00 Reassessment: Patient appears in no apparent distress at this time. No changes from [facility] previously documented assessment. Patient and/or family updated on plan of care and expected duration. Pain level reassessed. Patient is alert, oriented x 3, equal unlabored respirations, skin warm/dry/pink. 22:00 Reassessment: Patient appears in no apparent distress at this time. Patient and/or jw7 family updated on plan of care and expected duration. Pain level reassessed. Patient is alert, oriented x 3, equal unlabored respirations, skin warm/dry/pink. Patient states feeling better. Patient states symptoms have improved. Vital Signs: 16:45 BP 143 / 105; Pulse 71; Resp 16; Temp 98; Pulse Ox 100% on R/A; Weight 77.11 kg; Height ll1 5 ft. 8 in. ; Pain 5/10; 17:37 BP 144 / 93; Pulse 64; Resp 16 S; Pulse Ox 100% on R/A; kc6 18:28 BP 143 / 105; Pulse 65; Resp 15 S; Pulse Ox 100% on R/A; kc6 18:51 BP 148 / 97; kc6 19:00 BP 149 / 106; Pulse 69; Resp 16 S; Pulse Ox 97% on R/A; jw7 20:00 BP 142 / 104; Pulse 75; Resp 17 S; Pulse Ox 99% on R/A; jw7 21:00 BP 141 / 102; Pulse 70; Resp 16 S; Pulse Ox 98% on R/A; jw7 22:00 BP 134 / 97; Pulse 70; Resp 16 S; Pulse Ox 97% on R/A; jw7 16:45 Body Mass Index 25.85 (77.11 kg, 172.72 cm) ll1 16:45 Pain Scale: Adult ll1 NIH Stroke Scale Scores: 19:03 NIHSS Score: 0 ci ED Course: 16:35 Patient arrived in ED. ec2 16:43 [facility]ero[facility] kb 16:43 All Alexis MD is Attending Physician. kb 16:45 Ricky Nava is Attending Physician. ec2 16:45 Arm band placed on Patient placed in an exam room, on a stretcher. ll1 16:48 Triage completed. ll1 16:50 Maintain EMS IV. Dressing intact. Good blood return noted. Site clean \\T\\ dry. Gauge \\T\\ ll 1 site: 20 G L hand. 16:59 Mattie Roger, SIENNA is Primary Nurse. kc6 17:25 CT Head Brain wo Cont In Process Unspecified. EDMS 17:29 Patient has correct armband on for positive identification. Bed in low position. Call kc6 light in reach. Side rails up X2. Adult w/ patient. Client placed on continuous cardiac and pulse oximetry monitoring. NIBP monitoring applied. barback on. Door closed. Noise minimized. Lights dimmed. Warm blanket given. PO fluids given. 17:45 XRAY Chest (1 view) In Process Unspecified. EDMS 19:00 Report received from Sienna Rubio. jw7 19:00 Provided Education on: Use of Call Light. jw7 19:11 Vikas Chin MD is Hospitalizing Provider. ci 19:46 Primary Nurse role handed off by Mattie Roger, SIENNA as6 20:15 Door closed. Noise minimized. Lights dimmed. Warm blanket given. jw7 22:00 No provider procedures requiring assistance completed. jw7 22:00 Patient admitted, IV remains in place. jw7 Administered Medications: 17:29 Drug: NS 0.9% IV 1000 ml IV at 1000 ml once Route: IV; Rate: 1000 ml; Site: left hand; kc6 18:46 Follow up: Response: No adverse reaction; IV Status: Completed infusion; IV Intake: kc6 1000ml 17:29 Drug: Meclizine PO 50 mg PO once Route: PO; kc6 18:18 Follow up: Response: No adverse reaction kc6 18:46 Drug: Potassium Chloride PO 40 mEq PO once Route: PO; kc6 18:59 Follow up: Response: No adverse reaction kc6 Medication: 22:00 VIS not applicable for this client. jw7 Intake: 18:46 IV: 1000ml; Total: 1000ml. kc6 Outcome: 19:12 Decision to Hospitalize by Provider. ci 22:00 Admitted to Tele accompanied by tech, family with patient, via stretcher, room 401, jw7 22:00 Condition: stable 22:00 Instructed on the need for admit, Demonstrated understanding of instructions, 22:28 Patient left the ED. jw7 NIH Stroke Scale - NIH Stroke Score Date: 08/01/2023 Time: 19:03 Total Score = 0 10. Dysarthria (speech clarity - read or repeat words) - 0(Normal) 11. Extinction and Inattention (visual/tactile/auditory/spatial/personal) - 0(No abnormality) 1a. Level of Consciousness (LOC) - 0(Alert) 1b. Level of Consciousness (LOC) (Month \\T\\ Age) - 0(Both) 1c. LOC Commands (Open \\T\\ Closes Eyes/Water Manager) - 0(Both) 2. Best Gaze (Lateral Gaze Paresis) - 0(Normal) 3. Visual Field Loss - 0(No visual loss) 4. Facial Palsy - 0(Normal) 5a. Left Arm: Motor (10-second hold) - 0(No drift) 5b. Right Arm: Motor (10-second hold) - 0(No drift) 6a. Left Leg: Motor (5-second hold - always test supine) - 0(No drift) 6b. Right Leg: Motor (5-second hold - always test supine) - 0(No drift) 7. Limb Ataxia (finger/nose \\T\\ heel/gonzalez - test with eyes open) - 0(Absent) 8. Sensory Loss (pinprick arms/legs/face) - 0(Normal) 9. Best Language: Aphasia (description/naming/reading) - 0(No aphasia) Initials: ci Signatures: Dispatcher [employer] Opal Ventura, COLLEGE OR UNIVERSITY REGISTRAR-C COLLEGE OR UNIVERSITY REGISTRAR-Lazara Stack, RN RN ll1 Mandeep Bagley RN RN as6 Ros Bourne RN RN jw7 Mattie Roger RN RN kc6 All Alexis MD MD ec2 Ricky Nava ci Corrections: (The following items were deleted from the chart) 17:37 17:30 General: Appears in no apparent distress. comfortable, kc6 kc6
--- NOTE | 2023-08-01 19:13 | EDPHYS ---
Physician Documentation [facility] Name: Leila Avendaño Age: 62 yrs Sex: Female : 1960 Arrival Date: 08/01/2023 Time: 16:26 Bed 7 Private MD: ED Physician Ricky Nava HPI: 07/31 19:03 This 62 yrs old Female presents to ER via EMS with complaints of Dizziness, ci Palpitations. 19:03 Patient is a 62-year-old female with PMH hypertension, hypothyroidism, anxiety, vertigo ci who presents to the ED with chief complaint of dizziness that began around 3:30 PM while she was at work. Symptoms associated with headache, nausea/vomiting, worse with moving her head. Patient has been unsteady on her feet. Denies slurred speech, extremity weakness, blurry vision.. Historical: - Allergies: 16:45 No Known Allergies; ll1 - PMHx: 16:45 Anxiety; Hypertension; Hypothyroidism; Ulcers; ll1 - PSHx: 16:45 gastric bypass 2010; ll1 - Immunization history:: Adult Immunizations up to date. - Infectious Disease History:: Denies. - Social history:: Smoking status: Patient denies any tobacco usage or history of. - History obtained from: sister, EMS. ROS: 19:03 Constitutional: Negative for fever, chills, and weight loss, ci 19:03 Abdomen/GI: Positive for nausea and vomiting, 19:03 Neuro: Positive for dizziness, headache, 19:03 Neuro: Negative for altered mental status, loss of consciousness, seizure activity, speech changes, syncope, visual changes, weakness, Exam: 19:03 Constitutional: This is a well developed, well nourished patient who is awake, alert, ci and in no acute distress. Head/Face: Normocephalic, atraumatic. Eyes: Pupils equal round and reactive to light, extra-ocular motions intact. Lids and lashes normal. Conjunctiva and sclera are non-icteric and not injected. Cornea within normal limits. Periorbital areas with no swelling, redness, or edema. ENT: Nares patent. No nasal discharge, no septal abnormalities noted. Tympanic membranes are normal and external auditory canals are clear. Oropharynx with no redness, swelling, or masses, exudates, or evidence of obstruction, uvula midline. Mucous membranes moist. Neck: Trachea midline, no thyromegaly or masses palpated, and no cervical lymphadenopathy. Supple, full range of motion without nuchal rigidity, or vertebral point tenderness. No Meningismus. Chest/axilla: Normal chest wall appearance and motion. Nontender with no deformity. No lesions are appreciated. Cardiovascular: Regular rate and rhythm with a normal S1 and S2. No gallops, murmurs, or rubs. Normal PMI, no JVD. No pulse deficits. Respiratory: Lungs have equal breath sounds bilaterally, clear to auscultation and percussion. No rales, rhonchi or wheezes noted. No increased work of breathing, no retractions or nasal flaring. Abdomen/GI: Soft, non-tender, with normal bowel sounds. No distension or tympany. No guarding or rebound. No evidence of tenderness throughout. MS/ Extremity: Pulses equal, no cyanosis. Neurovascular intact. Full, normal range of motion. Neuro: Awake and alert, GCS 15, oriented to person, place, time, and situation. Cranial nerves II-XII grossly intact. Motor strength 5/5 in all extremities. Sensory grossly intact. Cerebellar exam normal. Normal gait. Psych: Awake, alert, with orientation to person, place and time. Behavior, mood, and affect are within normal limits. 19:03 ECG was reviewed by the Attending Physician. ci Vital Signs: 16:45 BP 143 / 105; Pulse 71; Resp 16; Temp 98; Pulse Ox 100% on R/A; Weight 77.11 kg; Height ll1 5 ft. 8 in. ; Pain 5/10; 17:37 BP 144 / 93; Pulse 64; Resp 16 S; Pulse Ox 100% on R/A; kc6 18:28 BP 143 / 105; Pulse 65; Resp 15 S; Pulse Ox 100% on R/A; kc6 18:51 BP 148 / 97; kc6 19:00 BP 149 / 106; Pulse 69; Resp 16 S; Pulse Ox 97% on R/A; jw7 20:00 BP 142 / 104; Pulse 75; Resp 17 S; Pulse Ox 99% on R/A; jw7 21:00 BP 141 / 102; Pulse 70; Resp 16 S; Pulse Ox 98% on R/A; jw7 22:00 BP 134 / 97; Pulse 70; Resp 16 S; Pulse Ox 97% on R/A; jw7 16:45 Body Mass Index 25.85 (77.11 kg, 172.72 cm) ll1 16:45 Pain Scale: Adult ll1 NIH Stroke Scale Scores: 19:03 NIHSS Score: 0 ci MDM: 16:43 Patient medically screened. kb 19:03 Differential diagnosis: cardiac arrhythmia, CVA, generalized weakness, head injury, ci idiopathic dizziness, near-syncope, syncope, vertigo. Data reviewed: vital signs, nurses notes, lab test result(s), EKG. Historians other than the Patient: EMS: . Care significantly affected by the following chronic conditions: Hypertension. ED course: Patient presents for evaluation of dizziness and palpitations. She is nontoxic-appearing, vital signs stable. Patient does have a history of vertigo, symptoms worse with head movement. CT head was obtained with no acute findings. NIH 0. Patient was given meclizine, she was hydrated with IV fluids. Patient was ambulated, appears unsteady on her feet. Will admit for MRI and further workup, rule out posterior stroke. Case discussed with hospitalist. The patient for admission.. 07/31 16:49 Order name: Basic Metabolic Panel; Complete Time: 18:02 ci 07/31 18:02 Interpretation: Abnormal: K 3.2. ci 07/31 16:49 Order name: CBC with Diff; Complete Time: 18:02 ci 07/31 16:49 Order name: Troponin HS; Complete Time: 18:02 ci 07/31 18:03 Interpretation: Within normal limits. ci 07/31 16:49 Order name: Magnesium; Complete Time: 18:02 ci 07/31 20:06 Order name: Magnesium EDMS 07/31 20:06 Order name: Urinalysis W/Microscopic EDMS 07/31 20:06 Order name: Thyroid Stimulating Hormone EDMS 07/31 20:06 Order name: CBC with Automated Diff EDMS 07/31 20:06 Order name: CBC with Automated Diff EDMS 07/31 20:06 Order name: Comprehensive Metabolic Panel EDMS 07/31 20:06 Order name: Comprehensive Metabolic Panel EDMS 07/31 21:37 Order name: T4 Free EDMS 07/31 16:49 Order name: CT Head Brain wo Cont; Complete Time: 18:02 ci 07/31 18:03 Interpretation: No acute disease. ci 07/31 16:49 Order name: XRAY Chest (1 view); Complete Time: 18:02 ci 07/31 18:03 Interpretation: No acute disease. ci 07/31 20:06 Order name: Brain With Cont EDMD 07/31 16:49 Order name: EKG; Complete Time: 16:50 ci 07/31 20:06 Order name: CONS Physician Consult EDMD 07/31 20:06 Order name: Occupational Therapy Consult EDMD 07/31 20:06 Order name: Physical Therapy Consult EDMD 07/31 16:49 Order name: Cardiac monitoring; Complete Time: 17:28 ci 07/31 16:49 Order name: EKG - Nurse/Tech; Complete Time: 17:29 ci 07/31 16:49 Order name: IV Saline Lock; Complete Time: 17:08 ci 07/31 16:49 Order name: Labs collected and sent; Complete Time: 17:08 ci 07/31 16:49 Order name: O2 Per Protocol; Complete Time: 17:08 ci 07/31 16:49 Order name: O2 Sat Monitoring; Complete Time: 17:08 ci EC:03 Rate is 66 beats/min. Rhythm is regular. QRS [place] is Normal. MI interval is prolonged ci at 190 msec. T waves are Normal. No ST changes noted. Clinical impression: Normal ECG. Administered Medications: 17:29 Drug: NS 0.9% IV 1000 ml IV at 1000 ml once Route: IV; Rate: 1000 ml; Site: left hand; kc6 18:46 Follow up: Response: No adverse reaction; IV Status: Completed infusion; IV Intake: kc6 1000ml 17:29 Drug: Meclizine PO 50 mg PO once Route: PO; kc6 18:18 Follow up: Response: No adverse reaction kc6 18:46 Drug: Potassium Chloride PO 40 mEq PO once Route: PO; kc6 18:59 Follow up: Response: No adverse reaction kc6 Disposition Summary: 08/01/23 19:12 Hospitalization Ordered Notes: Hospitalization Status: Observation ci Provider: Vikas Chin Location: Telemetry/MedSurg (observation) ci Condition: Stable ci Problem: an acute exacerbation ci Symptoms: are unchanged ci Bed/Room Type: Standard ci Room Assignment: 401(08/01/23 20:32) ty Diagnosis - Dizziness and giddiness ci - Palpitations ci Forms: - Medication Reconciliation Form ci - SBAR form ci - Leadership Thank You Letter ci NIH Stroke Scale - NIH Stroke Score Date: 08/01/2023 Time: 19:03 Total Score = 0 10. Dysarthria (speech clarity - read or repeat words) - 0(Normal) 11. Extinction and Inattention (visual/tactile/auditory/spatial/personal) - 0(No abnormality) 1a. Level of Consciousness (LOC) - 0(Alert) 1b. Level of Consciousness (LOC) (Month \T\ Age) - 0(Both) 1c. LOC Commands (Open \T\ Closes Eyes/Machinist Bench) - 0(Both) 2. Best Gaze (Lateral Gaze Paresis) - 0(Normal) 3. Visual Field Loss - 0(No visual loss) 4. Facial Palsy - 0(Normal) 5a. Left Arm: Motor (10-second hold) - 0(No drift) 5b. Right Arm: Motor (10-second hold) - 0(No drift) 6a. Left Leg: Motor (5-second hold - always test supine) - 0(No drift) 6b. Right Leg: Motor (5-second hold - always test supine) - 0(No drift) 7. Limb Ataxia (finger/nose \T\ heel/gonzalez - test with eyes open) - 0(Absent) 8. Sensory Loss (pinprick arms/legs/face) - 0(Normal) 9. Best Language: Aphasia (description/naming/reading) - 0(No aphasia) Initials: ci Signatures: Dispatcher [employer] Opal Ventura, FAMILY LIFE COUNSELOR-C FAMILY LIFE COUNSELOR-CkLazara Griffith, RN RN ll1 Ros Bourne RN RN jw7 Mattie Roger RN RN kc6 Ricky Nava Tylor ty Corrections: (The following items were deleted from the chart) 20:32 19:12 ci ty
[2023-08-01] MEDS ORDERED: ONDANSETRON 4 MG/2 ML VIAL IV PRN (19:59)
[2023-08-01] MEDS ORDERED: MORPHINE 2 MG/ML SYR IV PRN (19:59)
[2023-08-01] MEDS: POTASSIUM 25 MEQ EFFERV TAB PO ONE (20:03)
[2023-08-01] MEDS ORDERED: MECLIZINE HCL 12.5 MG TAB PO PRN (20:03)
[2023-08-01] MEDS ORDERED: HYDRALAZINE HCL 20 MG/ML VIAL IV PRN (20:04)
[2023-08-01] MEDS: HYDRALAZINE HCL 20 MG/ML VIAL IV ONE (20:05)
--- NOTE | 2023-08-01 20:13 | P.HP ---
Certification for Inpatient Patient admitted to: Observation With expected LOS: <2 Midnights Patient will require the following post-hospital care: None Practitioner: I am a practitioner with admitting privileges, knowledge of patient current condition, hospital course, and medical plan of care. Services: Services provided to patient in accordance with Admission requirements found in Title 42 Section 412.3 of the Code of Federal Regulations Patient History Date of Service: 08/01/23 Reason for admission: Dizziness and vertigo History of Present Illness: 63-year-old female with past medical history of hypertension on oral medication reports checks his blood pressure infrequently at home, anxiety disorder( status post with intermittent palpitation requiring stress test evaluation 10 years ago, workup was negative for CAD then ], gastric bypass, chronic diarrhea, hypothyroidism, history of intermittent vertigo; developed sudden onset dizziness while at work today. She says she felt something hit in the back of the head followed with a sudden wave of dizziness. She has significant nausea at the time with intermittent dry heaves. She states she felt like vomiting but it could be because of her gastric bypass. She denies any photophobia or blurring of vision. She felt the room spinning around her. Symptoms continue to persist for several hours and she has presented to the emergency room. On arrival in the emergency room vital signs were stable with blood pressure documented in the 160s over 105, EKG shows normal sinus rhythm with no ST segment changes, chest x-ray showed clear lungs bilaterally, head CT shows no acute intracranial pathology. BMP was unremarkable except for potassium of 3.2. CBC was within normal range. She was given meclizine in the emergency room which improved hide vertigo to some extent but did not relieve the symptoms. On attempt to ambulate patient was noted to have markedly unsteady gait. She has been admitted for further workup to rule out posterior CVA. Allergies No Known Allergies Allergy (Verified 10/18/21 07:32) Home medications list reviewed: Yes Home Medications: Amlodipine Besylate 10 mg PO BID 10/14/21 Escitalopram Oxalate [Lexapro] 10 mg PO DAILY 10/14/21 Lisinopril [Zestril] 20 mg PO BID 10/14/21 Metoprolol Succinate [Toprol Xl] 100 mg PO DAILY 10/14/21 Multivitamin 1 each PO DAILY 10/14/21 Codeine/APAP [Tylenol W/Codeine #3 tab] 1 tab PO Q4HP PRN #1 tab 10/18/21 - Past Medical/Surgical History Has patient received pneumonia vaccine in the past: No -: Hypertension -: Anxiety disorder -: Intermittent vertigo -: GERD -: Hypothyroidism -: Gastric bypass with [id number] - Family History Family History: Reviewed- Non-Contributory - Social History Smoking Status: Never smoker Place of Residence: Home Review of Systems 10-point ROS is otherwise unremarkable Cardiovascular: Light Headedness Gastrointestinal: Nausea Neurological: Weakness Physical Examination - Physical Exam General: Alert, In no apparent distress, Oriented x3 HEENT: Atraumatic, Normocephalic, PERRLA, Mucous membr. moist/pink Neck: Supple, 2+ carotid pulse no bruit, JVD not distended, No Thyromegaly Respiratory: Clear to auscultation bilaterally Cardiovascular: No edema, Normal pulses, Regular rate/rhythm, Normal S1 S2 Gastrointestinal: Normal bowel sounds, Soft and benign, Non-distended Musculoskeletal: No clubbing Integumentary: No rashes, No breakdown, No significant lesion Neurological: Normal speech, Normal strength at 5/5 x4 extr, Normal tone, Sensation intact, Cranial nerves 3-12 intact, Abnormal gait - Studies Laboratory Data (last 24 hrs) 08/01/23 08/01/23 17:05 17:05 WBC 5.20 Hgb 11.6 L Hct 35.7 L Plt Count 215 Sodium 138 Potassium 3.2 L BUN 11 Creatinine 0.53 L Glucose 97 Magnesium 2.0 Assessment and Plan - Problems (Diagnosis) (1) Vertigo Current Visit: Yes Status: Acute (2) Dizziness Current Visit: Yes Status: Acute (3) Hypertension Current Visit: Yes Status: Acute - Plan Impression Dizziness/vertigoMay be due to hypertensive emergency versus posterior CVA Hypertensionuncontrolled History of anxiety Plan Admit to inpatient/observation Start gentle IV fluid for hydration Replete potassium Follow magnesium level Obtain UA to rule out UTI Scheduled for MRI of the brain in the abdomen to rule out posterior CVA Neurology consult Start IV hydralazine now as well as resume home meds to improve blood pressure Monitor unsteady gait and dizziness symptoms post control of blood pressure Subcutaneous Lovenox for DVT prophylaxis Start meclizine as needed for symptom control Disposition possible home in 24 to 48 hours Discharge Plan: Home Plan to discharge in: 24 Hours - Advance Directives Does patient have a Living Will: No Does patient have a Durable POA for Healthcare: No - Code Status/Comfort Care Code Status Assessed: Yes Code Status: Full Code Physician Review: Patient Assessed, Agree with Above Assessment and Plan Time Spent Managing Pts Care (In Minutes): 65
[2023-08-01] MEDS ORDERED: MELATONIN 5 MG TABLET PO PRN (20:15)
[2023-08-01 21:23] LABS: Magnesium 1.7 mg/dL (1.6-2.4)
[2023-08-01 21:24] LABS: Thyroid Stimulating Hormone 5.09 uIU/mL (0.358-3.740)
[2023-08-01 22:51] VITALS: BMI 25.6
[2023-08-01] MEDS: D5NS KCL 20MEQ 20 MEQ/1,000 ML BAG IV SCH (23:18)
[2023-08-01] MEDS: ACETAMINOPHEN 500 MG TAB PO PRN (23:18)
[2023-08-02 04:41] LABS: Specific Gravity 1.008 (1.005-1.030); Sqamous Epithelial None Seen /HPF (None Seen); Urine Bacteria None Seen /HPF (<20); Urine Bilirubin NEGATIVE (Negative); Urine Blood Negative (Negative); Urine Clarity Clear (Clear); Urine Color Colorless (Yellow); Urine Culture Reflex Order NOT NEEDED; Urine Glucose NEGATIVE (Negative); Urine Ketones NEGATIVE (Negative); Urine Micro Reflex YN NO BILL MICROSCOPIC; Urine Nitrite NEGATIVE (Negative); Urine Protein NEGATIVE (Negative); Urine RBC None Seen /HPF (None Seen); Urine Urobilinogen Normal (Normal); Urine WBC <5 /HPF (<5)
[2023-08-02 09:05] LABS: Absolute Basophils 0.1 K/uL (0-0.5); Absolute Eosinophils 0.1 K/uL (0-0.5); Absolute Lymphocytes (CBC) 1.3 K/uL (0.7-4.9); Absolute Monocytes 0.4 K/uL (0.1-1.3); Absolute Neutrophil 2.1 K/uL (1.8-8.0); Basophils % 1.4 % (0-1.3); Hematocrit 35.3 % (36.0-45.0); Hemoglobin 11.2 g/dL (12.0-15.0); Lymphocytes % 33.3 % (15.3-44.8); MCH 28.7 pg (27.0-35.0); MCHC 31.7 g/dL (32.0-36.0); MCV 90.7 fL (80-100); MPV 8.3 fL (7.6-11.3); Monocytes % 8.8 % (3.3-12.3); Neutrophils % 53.5 % (41.7-73.7); Platelets 221 thou/uL (152-406); RBC Red Blood Cell Count 3.89 M/uL (3.86-4.86); Red Cell Distribution Width 14.9 % (12.1-15.2)
[2023-08-02 09:24] LABS: Albumin 3.2 g/dL (3.4-5.0); Albumin/Globulin Ratio 1.1 (1.1-1.8); Anion Gap 6.7 mEq/L (5.0-15.0); Bilirubin Total 0.5 mg/dL (0.2-1.0); Globulin 2.8 g/dL (2.3-3.5); Potassium 3.7 mEq/L (3.5-5.1)
[2023-08-02] MEDS: METOPROLOL XL 100 MG TAB PO SCH (09:29)
[2023-08-02] MEDS: ENOXAPARIN 40 MG/0.4 ML SQ SCH (09:29)
[2023-08-02] MEDS: POTASSIUM CL SA 10 MEQ TAB PO ONE (09:29)
[2023-08-02] MEDS: ESCITALOPRAM 20 MG TAB PO SCH (09:29)
[2023-08-02] MEDS: lisinopriL 20 MG TAB PO SCH (09:30)
[2023-08-02 10:51] VITALS: O2SAT 97
--- NOTE | 2023-08-02 11:09 | RAD REPORT ---
EXAM DESCRIPTION: MRI - Brain W/Wo Cont - 08/02/2023 10:58 am CLINICAL HISTORY: Vertigo, rule out posterior CVA Headache, drowsiness COMPARISON: Head Brain Wo Cont dated 08/01/2023 TECHNIQUE: Multi-sequence, multiplanar MR imaging of the brain was performed with contrast. FINDINGS: No intracranial hemorrhage, hydrocephalus, or extra-axial fluid collection.Minimal periven tricular and deep white matter chronic microvascular ischemic changes. No edema or shift of midline s tructures. No intracranial mass. DWI is negative for acute CVA. The midline structures are normally formed. Mastoid air cells and paranasal sinuses are clear. Post-contrast images show no abnormal enhancement to suggest tumor or infection. IMPRESSION: Negative for acute CVA or other acute intracranial process. No pathologic post-contrast enhancement suspected.
[2023-08-02] MEDS: AMLODIPINE 5 MG TAB PO SCH (11:58)
[2023-08-02] MEDS ORDERED: INFLUENZA VACCINE (for 6+ mo) 0.5 ML DOSE IMVAC ONE (12:00)
--- NOTE | 2023-08-02 12:34 | EKG ---
Test Date: 2023-08-01 Test Time: 17:23:51 Co Founder And Chairman: ANDREA MEASUREMENT RESULTS: Intervals: Rate: 66 WI: 190 QRSD: 98 QT: 416 QTc: 436 [place]: P: 49 WI: 190 QRS: 58 T: 26 INTERPRETIVE STATEMENTS: Normal sinus rhythm Normal ECG Compared to ECG 10/14/2021 09:46:43 No significant changes Electronically Signed On 08-02-23 12:32:59 CDT by Manny Sullivan
--- NOTE | 2023-08-02 13:20 | P.DS ---
Admission Date: 08/01/23 Discharge Date: 08/02/23 Reason for Admission: Dizziness and vertigo Procedures: CT head, MRI brain - negative for acute findings Brief History of Present Illness: 63-year-old female with past medical history of hypertension on oral medication, reports checking blood pressure infrequently at home, anxiety disorder, (status post intermittent palpitation requiring stress test evaluation 10 years ago, workup was negative for CAD), gastric bypass, chronic diarrhea, hypothyroidism, history of intermittent vertigo; developed sudden onset dizziness while at work today. She says she felt something hit in the back of the head followed with a sudden wave of dizziness. She has significant nausea at the time with intermittent dry heaves. She states she felt like vomiting but it could be because of her gastric bypass. She denies any photophobia or blurring of vision. She felt the room spinning around her. Symptoms continue to persist for several hours and she has presented to the emergency room. On arrival in the emergency room vital signs were stable with blood pressure documented in the 160s over 105, EKG shows normal sinus rhythm with no ST segment changes, chest x-ray showed clear lungs bilaterally, head CT shows no acute intracranial pathology. BMP was unremarkable except for potassium of 3.2. CBC was within normal range. She was given meclizine in the emergency room which improved hide vertigo to some extent but did not relieve the symptoms. On attempt to ambulate patient was noted to have markedly unsteady gait. She has been admitted for further workup to rule out posterior CVA. Hospital Course: Mrs. Avendaño did well over the course of her hospitalization. She has had no further episodes of dizziness, weakness, nausea, vomiting since moving from the ED to inpatient area. She states her mother had a brain aneurysm, and her son-in-law had vertigo, she is quite anxious for the MRI completion. On evaluation this morning she had no complaints, neurological eval patient normal, and she was without symptoms. MRI of the brain, stroke protocol, is negative for any acute findings per Dr. Stewart. Patient should follow-up with neurology, her PCP, and try to keep her head elevated about 30 degrees, without bending and stooping, for 1 week. We will discharge her with information about BPPV and Judi maneuver, vertigo. We encourage maintaining hydration status and will give meclizine and antiemetics. <Joyce Hastings - Last Filed: 08/02/23 13:20> Admission Date: 08/01/23 Discharge Date: 08/02/23 Hospital Course: Pt seen and examined. I agree with the note by the [employer]. The symptoms resolved. MRI brain is negative for any acute abnormality. Will dc with prn meclizine. Ok to discharge pt. <Angie Barros Jenn - Last Filed: 08/02/23 14:25> Disposition: ROUTINE DISCHARGE Discharge Condition: GOOD Vital Signs/Physical Exam: Temp Pulse Resp BP Pulse Ox 99 F 68 16 143/89 H 96 08/02/23 11:55 08/02/23 11:58 08/02/23 11:55 08/02/23 11:58 08/02/23 11:55 General: Alert, In no apparent distress, Oriented x3 HEENT: Atraumatic, Normocephalic Neck: Supple, JVD not distended Respiratory: Clear to auscultation bilaterally, Normal air movement Cardiovascular: Normal pulses, Regular rate/rhythm Capillary refill: <2 Seconds Gastrointestinal: Soft and benign Musculoskeletal: No clubbing, No swelling Integumentary: No rashes Neurological: Normal speech, Normal tone, Normal affect, Other (no nystagmus) Lymphatics: No axilla or inguinal lymphadenopathy External genitalia: Deferred Rectal: Deferred Laboratory Data at Discharge: WBC 4.00 thou/uL (4.3-10.9) L 08/02/23 08:17 Hgb 11.2 g/dL (12.0-15.0) L 08/02/23 08:17 Hct 35.3 % (36.0-45.0) L 08/02/23 08:17 Plt Count 221 thou/uL (152-406) 08/02/23 08:17 Sodium 140 mEq/L (136-145) 08/02/23 08:17 Potassium 3.7 mEq/L (3.5-5.1) D 08/02/23 08:17 BUN 5 mg/dL (7-18) L 08/02/23 08:17 Creatinine 0.47 mg/dL (0.55-1.02) L 08/02/23 08:17 Glucose 108 mg/dL (74-106) H 08/02/23 08:17 Magnesium 1.7 mg/dL (1.6-2.4) 08/01/23 20:20 Total Bilirubin 0.5 mg/dL (0.2-1.0) 08/02/23 08:17 AST 24 U/L (15-37) 08/02/23 08:17 ALT 29 U/L (13-56) 08/02/23 08:17 Alkaline Phosphatase 112 U/L (45-117) 08/02/23 08:17 <Hastings,Joyce Moncho - Last Filed: 08/02/23 13:20> Vital Signs/Physical Exam: Temp Pulse Resp BP Pulse Ox 99 F 68 16 143/89 H 96 08/02/23 11:55 08/02/23 11:58 08/02/23 11:55 08/02/23 11:58 08/02/23 11:55 Laboratory Data at Discharge: WBC 4.00 thou/uL (4.3-10.9) L 08/02/23 08:17 Hgb 11.2 g/dL (12.0-15.0) L 08/02/23 08:17 Hct 35.3 % (36.0-45.0) L 08/02/23 08:17 Plt Count 221 thou/uL (152-406) 08/02/23 08:17 Sodium 140 mEq/L (136-145) 08/02/23 08:17 Potassium 3.7 mEq/L (3.5-5.1) D 08/02/23 08:17 BUN 5 mg/dL (7-18) L 08/02/23 08:17 Creatinine 0.47 mg/dL (0.55-1.02) L 08/02/23 08:17 Glucose 108 mg/dL (74-106) H 08/02/23 08:17 Magnesium 1.7 mg/dL (1.6-2.4) 08/01/23 20:20 Total Bilirubin 0.5 mg/dL (0.2-1.0) 08/02/23 08:17 AST 24 U/L (15-37) 08/02/23 08:17 ALT 29 U/L (13-56) 08/02/23 08:17 Alkaline Phosphatase 112 U/L (45-117) 08/02/23 08:17 <Angie Barros Jenn - Last Filed: 08/02/23 14:25> Diet: AHA Activity: Ad anderson <Joyce Hastingslen - Last Filed: 08/02/23 13:20> <Angie Barros Jenn - Last Filed: 08/02/23 14:25> Home Medications: RX: Amlodipine Besylate 5 mg PO BID 10/14/21 RX: Escitalopram Oxalate [Lexapro] 10 mg PO DAILY 10/14/21 RX: Lisinopril [Zestril] 20 mg PO BID 10/14/21 RX: Metoprolol Succinate [Toprol Xl] 100 mg PO DAILY 10/14/21 RX: Multivitamin 1 each PO DAILY 10/14/21 RX: Meclizine HCl [Antivert*] 25 mg PO Q6H PRN #24 tab 08/02/23 RX: Promethazine Tab [Phenergan*] 25 mg PO Q12H PRN #15 tab 08/02/23 New Medications: RX: Meclizine HCl [Antivert*] 25 mg PO Q6H PRN #24 tab PRN Reason: Dizziness RX: Promethazine Tab [Phenergan*] 25 mg PO Q12H PRN #15 tab PRN Reason: Nausea / Vomiting Physician Discharge Instructions: Okay to DC IV and DC home Follow-up with primary care provider in 1 to 2 weeks Please call the inpatient unit for any questions or concerns regarding hospital stay Return to the ER for worsening symptoms Please keep head elevated at least 30 degrees x 1 week, avoid stooping or bending. Change positions slowly. Stay well hydrated. Will discharge with prescriptions for meclizine and phenergan. Both of these medications are dehydrating. Please drink a lot of water. Followup: OCTAVIO CUNNINGHAM [Primary Care Provider] - Nicolas Ervin MD [ASSOCIATE-ACTIVE - CAN ADMIT] -
[2023-08-02 16:33] VITALS: BP 134/88; TEMP 97.4
== END 2023-08-02 18:18 | disposition home or self-care (01) ==
LOC: ER 16:26 → ERHOLD 19:59 → 4TH 22:08
PROVIDERS: ADMIT Internal Medicine; ATTEND Hospitalist
DX: R42 Dizziness and giddiness (principal); R00.2 Palpitations; I10 Essential (primary) hypertension; F41.9 Anxiety disorder, unspecified; R26.81 Unsteadiness on feet; E03.9 Hypothyroidism, unspecified; Z98.84 Bariatric surgery status
CPT/HCPCS: 93005; 85025 ×2; 81001; 80048; 36415; 83735 ×2; 84443; 84484; 84439; 80053; 70450; 71045; 70553; 97535; 96360; 99285; A9577; J8597; J1650; J7030; J3480 ×2; G0378